=== PATIENT | female | born 1990 | race Caucasian/White ===

== ENCOUNTER 2020-01-25 14:25 | Emergency (ER) | payer MEDICAID, OTHER ==
[~2020-01-25] VITALS: Ht 160 cm; Wt 97.1 kg
--- OUTSIDE RECORDS SUMMARY | 2020-01-25 14:31 | XMS REPORT | Continuity of Care Document ---
Author Organization Unknown Address Unknown Phone Unavailable Allergies There is no data. Medications There is no data. Problems There is no data. Procedures There is no data. Results There is no data. Encounters ACCT No. Visit Date/Time Discharge Status Pt. Type Provider Facility Loc./Unit Complaint [id number] 01/25/2020 14:27:[address] Emergency ALEXANDRE RANDOLPH, MICHAEL Larry [facility] ER FS LT BREAST CYST
[2020-01-25] MEDS ORDERED: CEPHALEXIN 250 MG (KEFLEX) CAP PO ONE (15:45)
[2020-01-25] MEDS ORDERED: CEPH-506 PO (16:38)
[2020-01-25] MEDS ORDERED: IBUP-1780 PO (16:38)
--- NOTE | 2020-01-25 16:38 | ED Integumentary General ---
General Chief Complaint: Skin/Wound Problems Stated Complaint: LT BREAST CYST Nursing Triage Note: Patient states she has had a painful spot on her left breast for 4 days, states it is draining yellow pus. History of Present Illness Date Seen by Provider: Jan 25, 2020 Time Seen by Provider: 14:32 Initial Comments The patient is an otherwise healthy 29-year-old female who presents for evaluation of a small erythematous lesion to the skin at the 12:00 position of her upper left breast. No fevers, nausea or vomiting or other systemic symptoms. No generalized breast tenderness. No breast discharge. No shortness of breath or chest pain. Patient states lesion has been present for a couple of days. No therapy for discomfort prior to arrival. Allergies and Home Medications Allergies Coded Allergies: No Known Drug Allergies (Unverified , 01/25/20) Patient Home Medication List Home Medication List Reviewed: Yes Review of Systems Review of Systems Constitutional: see HPI All Other Systems Reviewed Negative Unless Noted: Yes Past Fdxvjcl-Mwrdts-Bgwsak Hx Past Med/Social Hx: Reviewed Nursing Past Med/Soc Hx Patient Social History Recent Foreign Travel: No Contact w/Someone Who Travel: No Recent Infectious Disease Expo: No Family Medical History Reviewed Nursing Family Hx Physical Exam Vital Signs Vital Signs - First Documented 01/25/20 14:46 Temp 35.3 Pulse 81 Resp 16 B/P (MAP) 153/89 (110) Pulse Ox 98 O2 Delivery Room Air Capillary Refill : Less Than 3 Seconds General Appearance: no apparent distress Comments This is a well-appearing 29-year-old female appearing nontoxic and in no acute distress. Head is normocephalic and atraumatic. Neck is supple and nontender. Oropharynx is moist. Lungs are clear to auscultation at all stations. There is a normal S1 and S2 without rubs or gallops and capillary refill is appropriate, less than 2 seconds globally. Examination of the left breast and rest of the chest wall completed with a female research dietitian; reveals 1 cm diameter erythematous papule without fluctuance suggestive of underlying abscess. It is mildly tender to palpation. No peau d'orange sign or other signs of abnormality to the rest of the breast. No other abnormalities noted to the left breast or rest of the chest wall. Progress/Results/Core Measures Results/Orders My Orders Orders - MICHAEL SCHROEDER MD Cephalexin Capsule (Keflex Capsule) (01/25/20 15:45) Vital Signs/I&O 01/25/20 14:46 Temp 35.3 Pulse 81 Resp 16 B/P (MAP) 153/89 (110) Pulse Ox 98 O2 Delivery Room Air Blood Pressure Mean: 110 Progress Progress Note : Time: 16:35 Progress Note Examination consistent with a small area of infection, likely folliculitis, to the upper midline of the left breast. We'll treat with Keflex and discharged with Keflex and ibuprofen to follow up very closely after the weekend with primary care. Patient understands that if she feels worse is that a better in the meantime or develops any other new symptoms of concern that she should return to the emergent department right away for reevaluation. All questions are answered. Departure Impression Primary Impression: Folliculitis Disposition: 01 HOME, SELF-CARE Condition: Improved Departure-Patient Inst. Referrals: DAYANA IBANEZ MD (PCP/Family) Primary Care Physician Patient Instructions: Folliculitis (DC) Add. Discharge Instructions: Follow-up very closely with her primary care physician in the next 2-4 days for a reevaluation of your symptoms and a discussion of next steps in care. Use the ibuprofen as needed for any discomfort. Take the antibiotic until the prescription is gone. Return to the emergency department right away with worsening symptoms of any kind or with any other new symptoms of concern. Scripts Ibuprofen (Ibuprofen) 800 Mg Tablet 800 MG PO Q8H PRN for PAIN, #30 TAB 0 Refills Prov: MICHAEL SCHROEDER MD 01/25/20 Cephalexin (Keflex) 250 Mg Capsule 250 MG PO QID for 7 Days, #28 CAP Prov: MICHAEL SCHROEDER MD 01/25/20 MICHAEL SCHROEDER MD Jan 25, 2020 16:38
[2020-01-25 17:29] VITALS: BP 153/89
== END 2020-01-25 17:30 | disposition home or self-care (01) ==
LOC: ER FS 14:27 → EDSEX 14:27 → ER FS 17:30
DX: L73.9 Follicular disorder, unspecified (principal)
CPT/HCPCS: 99283

== ENCOUNTER 2020-09-05 18:08 | Emergency (ER) | payer MEDICAID ==
[~2020-09-05] VITALS: Ht 160 cm; Wt 92.9 kg
[~2020-09-05 18:08] MED LIST: CEPH-506 PO; IBUP-1780 PO
[2020-09-05 18:15] VITALS: BP 137/77
[2020-09-05] MEDS ORDERED: ONDANSETRON 4 MG (ZOFRAN) ORAL DISSOLVE TAB ONE (18:15)
[2020-09-05] MEDS ORDERED: IBUPROFEN 800 MG (MOTRIN) TAB PO ONE ×2 (18:15→18:30)
[2020-09-05] MEDS ORDERED: ONDANSETRON 4 MG (ZOFRAN) ORAL DISSOLVE TAB PO ONE (18:30)
--- NOTE | 2020-09-05 18:32 | ED Cough/URI ---
General Chief Complaint: Cough/Cold/Flu Symptoms Stated Complaint: HEADACHE;CHILLD;VOMITTING Nursing Triage Note: PT AMB TO [facility] 10 WITH COMPLAINT OF MCPHERSON, MALAISE, FEVER, NAUSEA AND COUGH THAT STARTED TUESDAY NIGHT. Sepsis Screen: No Definite Risk Source: patient Exam Limitations: no limitations History of Present Illness Date Seen by Provider: Sep 05, 2020 Time Seen by Provider: 18:30 Initial Comments To ER with headache nausea chills and fever as well as general weakness. Symptoms began about 48 hours ago. Unmeasured fevers. No known ill contacts. Timing/Duration: constant Severity/Quality: moderate Associated Symptoms: fever/chills, headache, muscle aches, nasal congestion Allergies and Home Medications Allergies Coded Allergies: No Known Drug Allergies (Unverified , 01/25/20) Home Medications Cephalexin 250 Mg Capsule, 250 MG PO QID Prescribed by: MICHAEL SCHROEDER on 01/25/20 1638 Ibuprofen 800 Mg Tablet, 800 MG PO Q8H PRN for PAIN Prescribed by: MICHAEL SCHROEDER on 01/25/20 1638 Patient Home Medication List Home Medication List Reviewed: Yes Review of Systems Review of Systems Constitutional: see HPI, chills, fever EENTM: see HPI Respiratory: no symptoms reported Cardiovascular: no symptoms reported Gastrointestinal: nausea Genitourinary: no symptoms reported Musculoskeletal: no symptoms reported Skin: no symptoms reported Psychiatric/Neurological: Headache Hematologic/Lymphatic: No Symptoms Reported Past Ivmveza-Sqizki-Jvuxvy Hx Patient Social History Alcohol Use: Denies Use Smoking Status: Current Everyday Smoker 2nd Hand Smoke Exposure: No Recent Infectious Disease Expo: No Recent Hopitalizations: No Immunizations Up To Date Tetanus Booster (TDap): Unknown Seasonal Allergies Seasonal Allergies: No Past Medical History Surgeries: Yes Section Respiratory: No Cardiac: No Neurological: No Genitourinary: No Gastrointestinal: No Musculoskeletal: No Endocrine: No HEENT: No Cancer: No Psychosocial: Yes Depression Integumentary: No Physical Exam Vital Signs - First Documented 09/05/20 18:15 Temp 38.7 Pulse 85 Resp 20 B/P (MAP) 137/77 (97) Pulse Ox 99 O2 Delivery Room Air Capillary Refill : Less Than 3 Seconds Height: '" Weight: lbs. oz. kg; 36.00 BMI Method: General Appearance: WD/WN, no apparent distress Eyes: Bilateral Eye Normal Inspection, Bilateral Eye PERRL, Bilateral Eye EOMI HEENT: PERRL/EOMI, normal ENT inspection Neck: non-tender, full range of motion Respiratory: no respiratory distress, no accessory muscle use Cardiovascular: regular rate, rhythm, no murmur Gastrointestinal: normal bowel sounds, non tender, soft Neurologic/Psychiatric: alert, normal mood/affect, oriented x 3 Skin: normal color, warm/dry Progress/Results/Core Measures Suspected Sepsis Recent Fever Within 48 Hours: Yes Infection Criteria Present: None New/Unexplained Altered Menta: No Sepsis Screen: No Definite Risk SIRS Temperature: Pulse: 85 Respiratory Rate: 20 Blood Pressure 137 /77 Mean: 97 Results/Orders Lab Results Laboratory Tests Test 09/05/20 18:10 09/05/20 18:53 Range/Units Coronavirus 2018 (KATE) Negative Negative Micro Results Microbiology 09/05/20 Influenza Types A,B Antigen (JULIA) - Final, Complete My Orders Orders - MEDARDO WILKS APRN Influenza A And B Antigens (09/05/20 18:19) Covid 19 Inhouse Test (09/05/20 18:19) Coronavirus Sars-Cov-2 So 2018 (09/05/20 18:19) Ondansetron Oral Dissolve Tab (Zofran (09/05/20 18:30) Ibuprofen Tablet (Motrin Tablet) (09/05/20 18:30) Medications Given in ED Current Medications Medications Dose Ordered Sig/Galdino Route Start Time Stop Time Status Last Admin Dose Admin Ibuprofen 800 mg STK-MED ONCE PO 09/05/20 18:15 09/05/20 18:21 DC 09/05/20 18:22 800 MG Ondansetron HCl 4 mg STK-MED ONCE .ROUTE 09/05/20 18:15 09/05/20 18:20 DC 09/05/20 18:21 8 MG Vital Signs/I&O 09/05/20 09/05/20 18:15 18:15 Temp 38.7 Pulse 85 Resp 20 B/P (MAP) 137/77 (97) Pulse Ox 99 O2 Delivery Room Air Room Air Capillary Refill : Less Than 3 Seconds Blood Pressure Mean: 97 Departure Impression Primary Impression: Upper respiratory infection Disposition: 01 HOME, SELF-CARE Condition: Stable Departure-Patient Inst. Decision time for Depature: 21:50 Referrals: DAYANA IBANEZ MD (PCP/Family) Primary Care Physician Patient Instructions: Viral Upper Respiratory Infection, Adult (DC) MEDARDO WILKS APRN Sep 05, 2020 18:32
== END 2020-09-05 18:59 | disposition home or self-care (01) ==
LOC: EDUNIT# 18:08 → ER 18:09
DX: J06.9 Acute upper respiratory infection, unspecified (principal); F17.200 Nicotine dependence, unspecified, uncomplicated; Z20.822 Contact with and (suspected) exposure to COVID-19
CPT/HCPCS: 87635; 87804